=== PATIENT | male | born 1980 | race Caucasian/White ===

== ENCOUNTER 2018-08-31 15:16 | Emergency (ER) | payer OTHER ==
--- NOTE | 2018-08-31 16:36 | EDPHY ---
H & P Time Seen by Provider: 08/31/18 16:11 HPI/ROS: CHIEF COMPLAINT: Left wrist injury HISTORY OF PRESENT ILLNESS: 38-year-old male presents emergency department with injury to the left wrist. The patient was biking to work yesterday and fell injuring his left wrist. He was able to work throughout the day and then later that day and is today had more pain in the left wrist. Denies hitting his head or losing consciousness. Denies any other trauma or injury. He is right-hand dominant. ROS: Denies pain in the left elbow or left shoulder. Denies numbness or tingling in his fingers. Past Medical/Surgical History: Diabetes Social History: Works at [employer] Smoking Status: Never smoked Physical Exam: On examination there is no obvious swelling noted. He has mild pain with palpation of the distal radius but more so over anatomic snuffbox and with placing axial load. No deformities noted. He is able to fully supinate although this does cause pain. Full flexion extension of the wrist without difficulty. Nontender to palpate the left elbow or left shoulder. Normal sensation to light touch with normal 2 point discrimination. Strong radial pulse at the left wrist. Constitutional: Initial Vital Signs Temperature (C) 37 C 08/31/18 15:21 Heart Rate 62 08/31/18 15:21 Respiratory Rate 16 08/31/18 15:21 Blood Pressure 138/81 H 08/31/18 15:21 O2 Sat (%) 97 08/31/18 15:21 O2 Delivery Mode Room Air Allergies/Adverse Reactions: No Known Allergies Allergy (Unverified 11/07/10 14:15) Home Medications: Medication Instructions Recorded Enalapril Maleate 05/06/10 HUMALOG 05/06/10 MDM/Departure - [facility] Imaging Results: Imaging Impressions Wrist X-Ray 08/31/18 15:27 Impression: Questionable nondisplaced fracture of the pisiform. Otherwise, no evidence for acute osseous abnormality left wrist. Imaging: I viewed and interpreted images myself Procedures: The patient was placed in Velcro thumb spica splint and examined post application in good placement with normal [employer]ITION SERVICES ASSISTANT. ED Course/Re-evaluation: 38-year-old male presents emergency department with left wrist injury. X-rays reveal no obvious fractures. The radiologist was concerned about possible fracture to the pisiform, however the patient has no tenderness with palpation over this area. He will follow up with orthopedic surgery in 1 week to recheck. - Depart Disposition: Home, Routine, Self-Care Clinical Impression: Left wrist sprain Qualifiers: Encounter type: initial encounter Qualified Code(s): S63.502A - Unspecified sprain of left wrist, initial encounter Condition: Good Instructions: Wrist Sprain (ED) Additional Instructions: Concerned about possible injury to the navicular bone in your left wrist. Please keep splint on until follow-up with orthopedic surgeon in 1 week. Return if you develop numbness or tingling in your fingers, increasing pain, or if you feel worse in any way. Referrals: Meliton Triplett MD [Medical Doctor] - 5-7 days, call for appt. (Orthopedic hand surgeon on-call)
[2018-08-31 16:50] VITALS: BP 131/77
== END 2018-08-31 16:50 | disposition home or self-care (01) ==
DX: S63.502A Unspecified sprain of left wrist, initial encounter (principal); V18.0XXA Pedal cycle driver injured in noncollision transport accident in nontraffic accident, initial encounter; Y92.480 Sidewalk as the place of occurrence of the external cause
CPT/HCPCS: L3807